=== PATIENT | male | born 1980 | race African-American/Black ===

== ENCOUNTER 2021-10-06 23:02 | Emergency (ER) | payer SELFPAY ==
[~2021-10-06] VITALS: Ht 177.8 cm; Wt 111.0 kg
[2021-10-07] MEDS ORDERED: OxyCODONE HCL/ACETAMINOPHEN 5-325 MG TABLET PO ONE ×2 (02:15)
[2021-10-07 03:06] VITALS: BP 149/85
[2021-10-07] MEDS ORDERED: IBUP-2070 PO (03:50)
[2021-10-07] MEDS ORDERED: PERCT PO (03:50)
== END 2021-10-07 04:01 | disposition home or self-care (01) ==
LOC: EMS 23:02
DX: S82.52XA Displaced fracture of medial malleolus of left tibia, initial encounter for closed fracture (principal); J45.909 Unspecified asthma, uncomplicated; I10 Essential (primary) hypertension; F17.210 Nicotine dependence, cigarettes, uncomplicated; F12.90 Cannabis use, unspecified, uncomplicated; W10.9XXA Fall (on) (from) unspecified stairs and steps, initial encounter; Y93.89 Activity, other specified; Y92.89 Other specified places as the place of occurrence of the external cause; Y99.8 Other external cause status
CPT/HCPCS: 29515; 99285; 73610-TC; Z7502; Z7610

== ENCOUNTER 2021-10-15 09:56 | Emergency (ER) | payer MEDICAID ==
[~2021-10-15] VITALS: Ht 177.8 cm; Wt 120.5 kg
[~2021-10-15 09:56] MED LIST: IBUP-2070 PO; PERCT PO
[2021-10-15] MEDS ORDERED: IBUP-1554 PO (12:53)
[2021-10-15] MEDS ORDERED: ACET-2080 PO (12:53)
[2021-10-15 13:07] VITALS: BP 138/82
== END 2021-10-15 13:11 | disposition home or self-care (01) ==
LOC: EMS 09:59
DX: S82.52XA Displaced fracture of medial malleolus of left tibia, initial encounter for closed fracture (principal); F17.210 Nicotine dependence, cigarettes, uncomplicated; F12.90 Cannabis use, unspecified, uncomplicated; J45.909 Unspecified asthma, uncomplicated; W01.0XXA Fall on same level from slipping, tripping and stumbling without subsequent striking against object, initial encounter; Y93.89 Activity, other specified; Y92.89 Other specified places as the place of occurrence of the external cause; Y99.8 Other external cause status
CPT/HCPCS: 99282; 99283